=== PATIENT | female | born 1990 | race Caucasian/White ===

== ENCOUNTER 2017-11-18 12:35 | Emergency (ER) | END 2017-11-18 13:03 | disposition home or self-care (01) ==

== ENCOUNTER 2018-11-02 19:17 | Outpatient (CLI) | payer MEDICAID ==
[~2018-11-02] VITALS: Ht 157.5 cm; Wt 71.0 kg
[~2018-11-02 19:17] MED LIST: AZIT250T PO; BENZ-6 PO
[2018-11-02 20:31] VITALS: Ht 157.5 cm; Wt 71.0 kg
[2018-11-02 20:33] VITALS: BP 110/69; PULSE 62; RESP 18
--- NOTE | 2018-11-02 23:19 | TRIAGE ---
OB Triage Datetime Report Generated by CPN: 11/02/2018 23:19 Datetime: 11/02/2018 22:30 Stage of : OB Triage Labor Evaluation Frequency: 2-6 Monitor Mode: External Duration (sec)2399: 40-120 Quality: Mild Pattern: Normal: <= 5 Contractions in 10 Minutes Resting Tone [place]: Relaxed Heart Rate FHR Baseline Rate: 130 Monitor Mode: External US Variability: Moderate 6-25 bpm Accelerations: 15X15 Decelerations: None Category: Category I Datetime: 11/02/2018 21:32 Membrane Status: Intact Datetime: 11/02/2018 21:30 Stage of : OB Triage Labor Evaluation Frequency: 2-5 Monitor Mode: External Duration (sec)2399: 40-120 Quality: Mild Pattern: Normal: <= 5 Contractions in 10 Minutes Resting Tone [place]: Relaxed Heart Rate FHR Baseline Rate: 130 Monitor Mode: External US Variability: Moderate 6-25 bpm Accelerations: 15X15 Decelerations: None Category: Category I Datetime: 11/02/2018 20:30 Stage of : OB Triage Temperature Route: Oral Labor Evaluation Frequency: 2-5 Monitor Mode: External Duration (sec)2399: 40-120 Quality: Mild Pattern: Normal: <= 5 Contractions in 10 Minutes Resting Tone [place]: Relaxed Heart Rate FHR Baseline Rate: 130 Monitor Mode: External US Variability: Moderate 6-25 bpm Accelerations: 15X15 Decelerations: None Category: Category I Pain Assessment Pain Scale: 2 Pain Presence: Intermittent Pain Type: Dull Pain Location: Abdomen Pain Goal: 5 Pain Relief Measures: Comfort Measures Datetime: 11/02/2018 20:22 Vaginal Exam Dilatation (cms): 1.0 Effacement (%): 0 Station: -3 Exam By: TALYA Vaginal Bleeding: None Cervix, Consistency: Moderate Cervix, Position: Posterior Datetime: 11/02/2018 20:00 Assessment Type: Triage Maternal Assessment Level of Consciousness: Fully Conscious DTR's/Clonus: DTRs 2+; No Clonus Headache: Denies Blurred Vision: No Respiratory Effort: Unlabored; Regular Rhythm; Equal Expansion Breath Sounds, Left: Clear and Equal Breath Sounds, Right: Clear and Equal Nausea/Vomiting: Denies RUQ Epigastric Pain: Denies Lower Extremities Edema: None Upper Extremities Edema: None Facial Edema: None Fall Risk Assessment History of Falling: (0) No Secondary Diagnosis: (0) No Ambulatory Aid: (0) Bedrest/Nurse Assist IV Therapy: (0) No Gait: (0) Normal/Bedrest/Immobile Mental Status: (0) Oriented to Own Ability Fall Score: 0 Fall Risk Score Definition: No Risk: No action required Comment: TATOOS ON ABDOMEN Datetime: 11/02/2018 19:30 Time of Arrival: 11/02/2018 19:13 EGA: 38.0 Arrived By: Ambulatory Arrived From: Home Chief Complaint: CONTRACTIONS, VOMITX1 TODAY, 1 YESTERDAY Movement: Present Contractions: Irregular Rupture of Membranes: Denies Vaginal Bleeding: None Vaginal Discharge: Denies Patient Complaints: None Time Provider Notified: 11/02/2018 19:30 Provider Notified: EDWIN Initial Plan: EFM, VE, BPP, PO FLUIDS
--- NOTE | 2018-11-03 04:34 | PN ---
Triage Information Date/Time Reason for visit: Vaginal spotting after having vaginal exam in clinic, vomiting x1 today and yesterday Weeks of Gestation 38 weeks /Para Diabetes: none Hypertention: none Additional information 28-year-old at 38 weeks with a ERENDIRA of 118 2001-07-17 complaining of vaginal spotting after having vaginal exam in clinic and vomiting x1 today and yesterday. She states good movement. She denies shortness of breath, chest pain, headache, visual changes or LOF. Objective Vital Signs Date Temp Pulse Resp B/P (MAP) Pulse Ox O2 O2 Flow FiO2 Time Delivery Rate 11/02/18 98.3 62 18 110/69 Room Air 20:33 (83) Heart Rate: 140's Contractions: None Results/Medications Imaging Results FINDINGS: There is a single live intrauterine gestation. heart rate is 150 beats per minute. The position is cephalic. The placenta is anterior, grade II. The BRII is 10.9 cm. Breathing Movement: 2 Gross Body Movement: 2 Tone: 2 Qualitative Amniotic Fluid Volume: 2 TOTAL: 8 IMPRESSION: 1. Single viable intrauterine gestation. 2. Biophysical profile = 8/8. 3. BRII = 10.9 cm. Disposition: Discharge Assessment/Plan 28-year-old 010 at 38weeks with vaginal spotting after having a pelvic exam in clinic and 2 episodes of vomiting yesterday and today. heart rate is category 1. she has no uterine contractions. Speculum exam performed, there was no active bleeding. Patient reassured. Juice and crackers given, patient tolerated well. She has no vomiting. Sign and symptom of labor, preeclampsia, kick count discussed in detail with patient. She expressed understanding all of her questions answered. Ultrasound performed with biophysical profile of 8 out of 8 and normal BRII. She discharged home in stable condition with follow- up with. I strongly recommend come back to triage if she has any further concerns GINGER PINEDA Nov 03, 2018 04:34
== END 2018-11-02 22:35 | disposition home or self-care (01) ==
LOC: OBT 19:17 → L-D 19:19 → OBT 22:35
PROVIDERS: ATTEND Obstetrics & Gynecology
DX: O26.853 Spotting complicating pregnancy, third trimester (principal); Z3A.38 38 weeks gestation of pregnancy
CPT/HCPCS: 76818; Z7500; G0463

== ENCOUNTER 2018-11-06 17:35 | Inpatient (IN) | payer MEDICAID ==
[~2018-11-06] VITALS: Ht 157.5 cm; Wt 72.1 kg
[2018-11-06 17:47] VITALS: BP 118/81; PULSE 83; RESP 18; Ht 157.5 cm; Wt 72.1 kg
[2018-11-06] MEDS ORDERED: LACTATED RINGER'S 1,000 ML IV SCH (19:00)
[2018-11-06] MEDS ORDERED: ONDANSETRON 4 MG INJ IV PRN (19:00)
[2018-11-06] MEDS ORDERED: LACTATED RINGER'S 1,000 ML IV PRN (20:04)
[2018-11-06] MEDS ORDERED: BUTORPHANOL 2 MG INJ IV PRN (20:30)
[2018-11-06] MEDS ORDERED: METHYLERGONOVINE 0.2 MG INJ IM PRN (20:30)
[2018-11-06] MEDS ORDERED: CARBOPROST 250 MCG INJ IM PRN (20:30)
[2018-11-06] MEDS ORDERED: MINERAL OIL LIGHT 10 ML VIAL TOP PRN (20:30)
[2018-11-06] MEDS ORDERED: IBUPROFEN 600 MG TAB PO PRN (20:30)
[2018-11-06] MEDS ORDERED: LIDOCAINE 1% (MPF) 30 ML INJ INJ PRN (20:30)
[2018-11-06] MEDS ORDERED: MISOPROSTOL 200 MCG TAB PR PRN (20:30)
[2018-11-06] MEDS ORDERED: OXYTOCIN 30 UNITS/LR 500 ML IV SCH ×2 (20:30)
[2018-11-06] MEDS ORDERED: OXYTOCIN 30 UNITS/LR 500 ML IV PRN (20:30)
[2018-11-06] MEDS ORDERED: BUTORPHANOL 1 MG INJ IV PRN (20:30)
[2018-11-06] MEDS: LACTATED RINGER'S 1,000 ML IV SCH (20:50)
--- NOTE | 2018-11-06 21:26 | TRIAGE ---
OB Triage Datetime Report Generated by CPN: 11/06/2018 21:25 Datetime: 11/06/2018 21:03 Comments: Monitor off, pt transferred to L_D [facility] ambulatory, accompanied by María Fernandez RN. Datetime: 11/06/2018 21:00 Labor Evaluation Frequency: 1-4.5 Monitor Mode: External Duration (sec)2399: 40-100 Quality: Moderate Pattern: Normal: <= 5 Contractions in 10 Minutes Resting Tone [place]: Relaxed Heart Rate FHR Baseline Rate: 130 Monitor Mode: External US Variability: Moderate 6-25 bpm Accelerations: 15X15 Decelerations: None Category: Category I Comments: periods of baseline at 135bpm Pain Assessment Pain Scale: 9 Pain Presence: Intermittent Pain Type: Contraction; Pressure Pain Location: Abdomen; Back; Perineum Pain Relief Measures: Comfort Measures Datetime: 11/06/2018 20:00 Stage of : Labor Labor Evaluation Frequency: 1-4 Monitor Mode: External Duration (sec)2399: 40-90 Quality: Moderate Pattern: Normal: <= 5 Contractions in 10 Minutes Resting Tone [place]: Relaxed Heart Rate FHR Baseline Rate: 125 Monitor Mode: External US Variability: Moderate 6-25 bpm Accelerations: 15X15 Decelerations: None Category: Category I Pain Assessment Pain Scale: 8 Pain Presence: Intermittent Pain Type: Contraction; Pressure Pain Location: Abdomen; Back; Perineum Pain Relief Measures: Comfort Measures Pain Assessment Comments: Pt states pain is still 8/10 but contractions do feel more intense and cl oser to gether than before she arrived to hospital Datetime: 11/06/2018 19:59 Monitor Mode: External Monitor Mode: External US Datetime: 11/06/2018 19:47 Vaginal Exam Dilatation (cms): 2.0 Effacement (%): 40 Station: -2 Exam By: SAADIA RN Membrane Status: Intact Vaginal Bleeding: Normal Show Cervix, Consistency: Moderate Cervix, Position: Midposition Presentation 'A': Cephalic Datetime: 11/06/2018 19:00 Stage of : OB Triage Maternal Assessment Level of Consciousness: Fully Conscious Labor Evaluation Frequency: 1-7 Monitor Mode: External Duration (sec)2399: 50-100 Quality: Mild Resting Tone [place]: Relaxed Heart Rate FHR Baseline Rate: 135 Monitor Mode: External US Variability: Moderate 6-25 bpm Accelerations: 15X15 Decelerations: None Category: Category I Pain Assessment Pain Scale: 0 Pain Goal: 3 Membrane Status: Intact Vaginal Bleeding: None Datetime: 11/06/2018 17:50 Vaginal Exam Dilatation (cms): 1.5 Effacement (%): 50 Station: -2 Exam By: khemani Vaginal Bleeding: Scant Cervix, Consistency: Moderate Cervix, Position: Midposition Datetime: 11/06/2018 17:45 Assessment Type: Triage Maternal Assessment Level of Consciousness: Fully Conscious DTR's/Clonus: DTRs 2+; No Clonus Headache: Denies Blurred Vision: No Respiratory Effort: Unlabored; Regular Rhythm; Equal Expansion Breath Sounds, Left: Clear and Equal Breath Sounds, Right: Clear and Equal Nausea/Vomiting: Denies RUQ Epigastric Pain: Denies Lower Extremities Edema: None Degree: None Upper Extremities Edema: None Degree: None Facial Edema: None Fall Risk Assessment History of Falling: (0) No Secondary Diagnosis: (0) No Ambulatory Aid: (0) Bedrest/Nurse Assist IV Therapy: (0) No Gait: (0) Normal/Bedrest/Immobile Mental Status: (0) Oriented to Own Ability Fall Score: 0 Fall Risk Score Definition: No Risk: No action required Datetime: 11/06/2018 17:44 Time of Arrival: 11/06/2018 17:34 EGA: 38.4 Arrived By: Ambulatory Arrived From: Home Chief Complaint: PT. HERE C/O UC'S AND SPOTTING Movement: Present Contractions: Irregular Rupture of Membranes: Denies Vaginal Bleeding: None Vaginal Discharge: Denies Recent Sexual Intercouse: Denies Abdominal Trauma: Not Applicable Patient Complaints: Contractions; Cramping; Back Pain Time Provider Notified: 11/06/2018 18:30 Provider Notified: HADADIAN Initial Plan: EFM/SVE/BPP/IV HYDRATION/ZOFRAN Datetime: 11/06/2018 17:42 Monitor Mode: External Monitor Mode: External US Datetime: 11/02/2018 20:00 Fall Score: 0 Fall Risk Score Definition: No Risk: No action required Datetime: 11/02/2018 19:30 EGA: 38.0
[2018-11-06] MEDS: OXYTOCIN 30 UNITS/LR 500 ML IV SCH (22:44)
[2018-11-07] MEDS: LACTATED RINGER'S 1,000 ML IV SCH ×2 (04:26→19:02)
[2018-11-07] MEDS ORDERED: PNV11TAB PO (07:40)
[2018-11-07] MEDS: OXYTOCIN 30 UNITS/LR 500 ML IV SCH ×2 (08:49→23:04)
--- NOTE | 2018-11-08 00:51 | HP ---
Date/Time of Note Date/Time of Note DATE: 11/08/18 TIME: 00:46 OB - History Hx of Present Free Text/Dictation Late entry note. Patient seen at 07:30 on 11/07/2018 28-year-old 2 para 0010 with single intrauterine at 38 weeks and 5 days with a ERENDIRA of 11/16/2018 complaining of uterine contractions. She states good movement. She denies nausea, vomiting, shortness of breath, chest pain, headache, visual changes, vaginal bleeding or LOF. Initial cervical exam in triage was /high, repeat exam was . As there was cervical changes patient admitted in labor and delivery Chief Complaint: Uterine contractions Estimated Due Date: Nov 16, 2018 : 2 Para: 0 Spontaneous : 1 Therapeutic : 0 Care: Good Care Ultrasounds: Normal mid trimester US Obstetrical Complications: None Medical Complications: None Past Family/Social History * Past Medical, Surgical, Family and Obstetric Histories reviewed from chart. OB Admission Exam Vital Signs Vital Signs Vital Signs Date Temp Pulse Resp B/P (MAP) Pulse Ox O2 O2 Flow FiO2 Time Delivery Rate 11/06/18 98.7 83 18 118/81 Room Air 17:47 (93) Physical Exam HEENT: WNL Heart: Rhythm Normal Lungs: Clear Abdomen: WNL Extremities: Normal Cervical Dilatation: 2cm Effacement: 50% Station: -2 Membranes: Intact Heart Rate: 130's Accelerations: Accelerations Present Decelerations: No Decelerations Varibility: Moderate Contractions on Admission: < 5 Minutes Apart Intensity: Moderate Last 72 hours Lab Results CBC & BMP 11/06/18 23:25 OB Assessment/Plan Other plan: 28 years old at 38 weeks and 5 days seen in early labor - FHR: No sign of metabolic acidosis- Category I - Continuous EFM, toco - CBC, blood type and screen - Analgesia options with R/B/A discussed in detail with patient - Epidural per patient request - Please see the orders - Obtain record Admission, procedures, expectations, risks and possible complications have been discussed in detail with the patient. Risk of vaginal delivery including but not limited to bleeding, infection, cervical laceration, placental retention, injury to fetus, blood transfusion, blood transfusion related infection, risk of anesthesia, adhesion, cervical laceration, episiotomy/laceration, possible delivery with risk of bleeding, infection, injury to other organs (bowel, bladder, ureter, vessels, nerves), injury to fetus, blood transfusion, blood transfusion related infection, risk of anesthesia, scar and hernia formation, needs for future , removal of uterus or any other indicated surgery discussed with the patient. She expressed understanding and repeats the risks. All of her questions were answered. She signed the informed consent. PHYSICIAN'S VERIFICATION OF INFORMED CONSENT The patient was counseled regarding the procedure, its indications, risks, pote ntial complications and alternatives and any questions were answered. Consent was obtained. PLANNED PROCEDURE/TREATMENT: Vaginal delivery, episiotomy, repair of laceration possible delivery GINGER PINEDA Nov 08, 2018 00:51
[2018-11-08] MEDS: LACTATED RINGER'S 1,000 ML IV SCH ×3 (05:47→21:33)
[2018-11-09] MEDS: MISOPROSTOL 50 MCG CAPSULE PO SCH ×4 (01:16→13:00)
[2018-11-09] MEDS: LACTATED RINGER'S 1,000 ML IV SCH ×5 (02:52→21:49)
[2018-11-09] MEDS ORDERED: AMPICILLIN 2 GM/NS (PMX) 100 ML ONE (15:54)
[2018-11-09] MEDS ORDERED: AMPICILLIN 2 GM/NS (PMX) 100 ML IVPB ONE (16:00)
[2018-11-09] MEDS ORDERED: AMPICILLIN 1 GM/NS (PMX) 50 ML ONE (18:56)
[2018-11-09] MEDS: AMPICILLIN 1 GM/NS (PMX) 50 ML IVPB SCH (20:16)
[2018-11-09] MEDS: OXYTOCIN 30 UNITS/LR 500 ML IV SCH (21:37)
--- NOTE | 2018-11-09 21:56 | PREAC ---
Date/Time of Note Date/Time of Note DATE: 11/09/18 TIME: 21:56 Anesthesia Eval and Record Evaluation Time Pre-Procedure Interview DATE: 11/09/18 TIME: 21:56 Age 28 Sex female NPO: 8 hrs Preoperative diagnosis labor pain Planned procedure epidural Past Medical History Past Medical History: None Surgery & Anesthesia Issues No known issue Meds Anticoagulation: No Beta Williams within 24 hr: No Reason Beta Williams not given: Pt. not on B-Williams Reported Medications [id number] ( 19) 1 Each Tablet, 1 TAB PO DAILY, TAB 11/07/18 Discontinued Scripts Azithromycin* (Zithromax*) 250 Mg Tablet, 250 MG PO .ZPACK DIRECTED, #6 TAB TAKE 500 MG (2 TABS) THE FIRST DAY THEN 250 MG (1 TAB) DAYS 2-5 Prov:LARA DIOP PA-C 11/18/17 Benzonatate* (Tessalon Perle*) 100 Mg Capsule, 100 MG PO Q8H PRN for COUGH, #20 CAP Prov:LARA DIOP PA-C 11/18/17 Current Medications Ondansetron HCl (Zofran Inj) 4 mg Q6H PRN IV NAUSEA AND/OR VOMITING; Start 11/06/18 at 19:00 Lactated Ringer's 1,000 ml @ 125 mls/hr Q8H IV Last administered on 11/09/18at 21:49; Admin Dose 125 MLS/HR; Start 11/06/18 at 20:04 Butorphanol Tartrate (Stadol) 1 mg Q2H PRN IV PAIN; Start 11/06/18 at 20:30 Butorphanol Tartrate (Stadol) 2 mg Q2H PRN IV PAIN; Start 11/06/18 at 20:30 Lidocaine (Xylocaine 1% (Mpf)) 30 ml ONCE PRN INJ EPISIOTOMY; Start 11/06/18 at 20:30 Oxytocin/Lactated Ringer's 500 ml @ 500 mls/hr ONCE POST IV ; Start 11/06/18 at 20:30 Oxytocin/Lactated Ringer's 500 ml @ 125 mls/hr POST IV ; Start 11/06/18 at 20:30 Ibuprofen (Motrin) 600 mg ONCE PRN PO PAIN LEVEL 1-5; Start 11/06/18 at 20:30 Lactated Ringer's 1,000 ml @ 2,000 mls/hr Q30M PRN IV ANESTHESIA Last administered on 11/09/18at 20:17; Admin Dose 2,000 MLS/HR; Start 11/06/18 at 20:04 Oxytocin/Lactated Ringer's 500 ml @ 0 mls/hr ONCE PRN IV VAGINAL BLEEDING; Start 11/06/18 at 20:30 Methylergonovine Maleate (Methergine) 0.2 mg ONCE PRN IM VAGINAL BLEEDING; Start 11/06/18 at 20:30 Carboprost Tromethamine (Hemabate) 250 mcg ONCE PRN IM VAGINAL BLEEDING; Start 11/06/18 at 20:30 Misoprostol (Cytotec) 1,000 mcg ONCE PRN MT VAGINAL BLEEDING; Start 11/06/18 at 20:30 Oxytocin/Lactated Ringer's 500 ml @ 0 mls/hr FOR AUGMENTATION IV Last administered on 11/09/18at 21:37; Admin Dose 1 MLS/HR; Start 11/06/18 at 20:30 Mineral Oil (Muri-Lube) 10 ml PRN PRN TOP delivery lubrication; Start 11/06/18 at 20:30 Misoprostol (Cytotec 50 Mcg Capsule) 50 mcg Q4 PO Last administered on 11/09/18at 08:26; Admin Dose 50 MCG; Start 11/09/18 at 00:00 Ampicillin 50 ml @ 100 mls/hr Q4 IVPB Last administered on 11/09/18at 20:16; Admin Dose 100 MLS/HR; Start 11/09/18 at 20:00 Meds reviewed: Yes Allergies Coded Allergies: No Known Allergy (Unverified , 11/09/18) Allergies Reviewed: Yes Labs/Studies Labs Reviewed: Reviewed by anesthesiologist Result Diagram: 11/06/18 5974 test: N/A Pre-procedure Exam Last vitals Vital Signs Date Temp Pulse Resp B/P (MAP) Pulse Ox O2 O2 Flow FiO2 Time Delivery Rate 11/06/18 98.7 83 18 118/81 Room Air 17:47 (93) Airway: Adequate mouth opening, Adequate thyromental dist Mallampati: Mallampati II Teeth: Normal Lung: Normal Heart: Normal ASA Physical Status ASA physical status: 2 Emergency: None Pre-operative Attestations Prior to commencing anesthesia and surgery, the patient was re-evaluated, there was verification of: *The patient's identity *The results of appropriate recent lab work and preoperative vital signs *The above evaluation not changing prior to induction *Anesthetic plan, risk benefits, alternative and complications discussed with patient/family; questions answered; patient/family understands, accepts and wishes to proceed. NICKI CABRALES DO Nov 09, 2018 21:56
[2018-11-09] MEDS ORDERED: NALOXONE (0.4 MG/ML) INJ IV PRN (22:00)
--- NOTE | 2018-11-09 22:19 | PAC ---
Date/Time of Note Date/Time of Note DATE: 11/09/18 TIME: 22:18 Post-Anesthesia Notes Post-Anesthesia Note Last documented vital signs Vital Signs Date Temp Pulse Resp B/P (MAP) Pulse Ox O2 O2 Flow FiO2 Time Delivery Rate 11/06/18 98.7 63 18 118/60 97 Room Air 2218 Activity: WNL Respiratory function: WNL Cardiovascular function: WNL Mental status: Baseline Pain reasonably controlled: Yes Hydration appropriate: Yes Nausea/Vomiting absent: Yes NICKI CABRALES DO Nov 09, 2018 22:19
[2018-11-10] MEDS: AMPICILLIN 1 GM/NS (PMX) 50 ML IVPB SCH ×4 (00:04→11:53)
[2018-11-10] MEDS: FENTAnyl 2MCG/ML-ROPIV 0.2% 100 ML BAG EPI SCH ×2 (05:28→11:13)
[2018-11-10] MEDS: LACTATED RINGER'S 1,000 ML IV SCH ×2 (05:30→15:54)
[2018-11-10] MEDS ORDERED: GENTAMICIN 80 MG/NS (PMX) 50 ML IVPB SCH (08:12)
[2018-11-10] MEDS ORDERED: ACETAMINOPHEN 500 MG TAB PO PRN (08:12)
[2018-11-10] MEDS ORDERED: ACETAMINOPHEN 500 MG TAB ONE (08:15)
[2018-11-10] MEDS ORDERED: DEXTROSE 5%-LR 1,000 ML IV SCH (09:10)
[2018-11-10] MEDS ORDERED: CEFAZOLIN 2 GM/50 ML (PMX) 50 ML IVPB ONE (16:00)
--- NOTE | 2018-11-10 16:04 | PREAC ---
Date/Time of Note Date/Time of Note DATE: 11/10/18 TIME: 16:02 Anesthesia Eval and Record Evaluation Time Pre-Procedure Interview DATE: 11/10/18 TIME: 16:02 Age 28 Sex female NPO: 8 hrs Preoperative diagnosis iup at 38 weeks, failure to progress Planned procedure primary c section Past Medical History Past Medical History: Includes Heme: Anemia Surgery & Anesthesia Issues No known issue Meds Anticoagulation: No Beta Williams within 24 hr: No Reason Beta Williams not given: Pt. not on B-Williams Reported Medications [id number] ( 19) 1 Each Tablet, 1 TAB PO DAILY, TAB 11/07/18 Current Medications Ondansetron HCl (Zofran Inj) 4 mg Q6H PRN IV NAUSEA AND/OR VOMITING Last administered on 11/10/18at 03:14; Admin Dose 4 MG; Start 11/06/18 at 19:00 Lactated Ringer's 1,000 ml @ 125 mls/hr Q8H IV Last administered on 11/10/18at 15:54; Admin Dose 125 MLS/HR; Start 11/06/18 at 20:04 Butorphanol Tartrate (Stadol) 1 mg Q2H PRN IV PAIN; Start 11/06/18 at 20:30 Butorphanol Tartrate (Stadol) 2 mg Q2H PRN IV PAIN; Start 11/06/18 at 20:30 Lidocaine (Xylocaine 1% (Mpf)) 30 ml ONCE PRN INJ EPISIOTOMY; Start 11/06/18 at 20:30 Oxytocin/Lactated Ringer's 500 ml @ 500 mls/hr ONCE POST IV ; Start 11/06/18 at 20:30 Oxytocin/Lactated Ringer's 500 ml @ 125 mls/hr POST IV ; Start 11/06/18 at 20:30 Ibuprofen (Motrin) 600 mg ONCE PRN PO PAIN LEVEL 1-5; Start 11/06/18 at 20:30 Lactated Ringer's 1,000 ml @ 2,000 mls/hr Q30M PRN IV ANESTHESIA Last administered on 11/09/18at 20:17; Admin Dose 2,000 MLS/HR; Start 11/06/18 at 20:04 Oxytocin/Lactated Ringer's 500 ml @ 0 mls/hr ONCE PRN IV VAGINAL BLEEDING; Start 11/06/18 at 20:30 Methylergonovine Maleate (Methergine) 0.2 mg ONCE PRN IM VAGINAL BLEEDING; Start 11/06/18 at 20:30 Carboprost Tromethamine (Hemabate) 250 mcg ONCE PRN IM VAGINAL BLEEDING; Start 11/06/18 at 20:30 Misoprostol (Cytotec) 1,000 mcg ONCE PRN MD VAGINAL BLEEDING; Start 11/06/18 at 20:30 Oxytocin/Lactated Ringer's 500 ml @ 0 mls/hr FOR AUGMENTATION IV Last administered on 11/09/18at 21:37; Admin Dose 1 MLS/HR; Start 11/06/18 at 20:30 Mineral Oil (Muri-Lube) 10 ml PRN PRN TOP delivery lubrication; Start 11/06/18 at 20:30 Misoprostol (Cytotec 50 Mcg Capsule) 50 mcg Q4 PO Last administered on 11/09/18 08:26; Admin Dose 50 MCG; Start 11/09/18 at 00:00 Ampicillin 50 ml @ 100 mls/hr Q4 IVPB Last administered on 11/10/18 11:53; Admin Dose 100 MLS/HR; Start 11/09/18 at 20:00 Naloxone HCl (Narcan) 0.2 mg Q2M PRN IV DECREASED REPIRATORY RATE; Start 11/09/18 at 22:00 Fentanyl/ Ropivacaine 100 ml EPIDURAL (PCEA) EPI Last administered on 11/10/18 11:13; Admin Dose 100 ML; Start 11/09/18 at 22:00 Acetaminophen (Tylenol Tab) 1,000 mg Q6H PRN PO MILD PAIN(1-3)OR ELEVATED TEMP Last administered on 11/10/18 08:22; Admin Dose 1,000 MG; Start 11/10/18 at 08:12 Gentamicin Sulfate 50 ml @ 104 mls/hr Q8H IVPB Last administered on 11/10/18 08:28; Admin Dose 104 MLS/HR; Start 11/10/18 at 08:12 Dextrose/Lactated Ringer's 1,000 ml @ 125 mls/hr Q8H IV Last administered on 11/10/18 09:44; Admin Dose 125 MLS/HR; Start 11/10/18 at 09:10 Cefazolin Sodium/ Dextrose 50 ml @ 100 mls/hr ONCE ONCE IVPB ; Start 11/10/18 at 16:00; Stop 11/10/18 at 16:29 Meds reviewed: Yes Allergies Coded Allergies: No Known Allergy (Unverified , 11/09/18) Allergies Reviewed: Yes Labs/Studies Labs Reviewed: Reviewed by anesthesiologist Result Diagram: 11/06/18 5961 test: Positive Pre-procedure Exam Last vitals Vital Signs Date Temp Pulse Resp B/P (MAP) Pulse Ox O2 O2 Flow FiO2 Time Delivery Rate 11/10/18 99.2 09:26 11/06/18 83 18 118/81 Room Air 17:47 (93) Airway: Adequate mouth opening, Adequate thyromental dist Mallampati: Mallampati II Teeth: Normal Lung: Normal Heart: Normal ASA Physical Status ASA physical status: 2 Emergency: None Planned Anesthetic Neuraxial: Epidural Planned Pain Management Epidural, Parenteral pain med Pre-operative Attestations Prior to commencing anesthesia and surgery, the patient was re-evaluated, there was verification of: *The patient's identity *The results of appropriate recent lab work and preoperative vital signs *The above evaluation not changing prior to induction *Anesthetic plan, risk benefits, alternative and complications discussed with patient/family; questions answered; patient/family understands, accepts and wishes to proceed. KEVIN RAMIRES Nov 10, 2018 16:04
[2018-11-10] MEDS ORDERED: LIDOCAINE 1.5%/EPI MPF (SDV) 30 ML VIAL ONE (16:23)
[2018-11-10] MEDS ORDERED: FENTAnyl 50 MCG/ML VIAL ONE (16:24)
[2018-11-10] MEDS ORDERED: CLINDAMYCIN 900 MG/D5W (PMX) 50 ML IVPB SCH (16:30)
[2018-11-10] MEDS ORDERED: DEXAMETHASONE 4 MG/ML 1 ML INJ ONE (16:34)
[2018-11-10] MEDS ORDERED: CLINDAMYCIN 900 MG/D5W (PMX) 50 ML IVPB ONE (16:39)
[2018-11-10] MEDS ORDERED: morphine SULFATE/PF (10 MG/10 ML) INJ ONE (16:58)
[2018-11-10] MEDS ORDERED: ONDANSETRON 4 MG INJ IV PRN (17:30)
[2018-11-10] MEDS ORDERED: ZOLPIDEM 5 MG TAB PO PRN (17:30)
[2018-11-10] MEDS ORDERED: HYDROmorphONE 0.5 MG/0.5 ML SYG IV PRN ×2 (17:30)
[2018-11-10] MEDS ORDERED: DIPHENHYDRAMINE 50 MG INJ IV PRN (17:30)
[2018-11-10] MEDS ORDERED: NALOXONE (0.4 MG/ML) INJ IV PRN (17:30)
--- NOTE | 2018-11-10 17:45 | OPR ---
Operative Report Planned Procedure Procedure date Nov 10, 2018 Procedure(s) Primary low transverse delivery Performed by see signature line Dust Collector Operator: МАРИНА OCHOA MD Anesthesiologist: KEVIN RAMIRES Pre-procedure diagnosis 28-year-old 2 para 0010 with single intrauterine at 38 weeks and 5 days with arrest of dilation [id number] Anesthesia Type: [id number] spinal Post-Procedure Post-procedure diagnosis 28-year-old 2 para 0010 with single intrauterine at 38 weeks and 5 days with arrest of dilation Findings 1. Normal uterus, fallopian tubes and ovaries 2. Viable male in face presentation. 6 at one minute and 8 in 5 minutes. Weight: 8 pounds and 4 ounces - 3730 g. Time of delivery: 16:52 3. Placenta with three vessel cord 4. Amniotic fluid - Clear Estimated Blood Loss: 600 - 700 mls Specimen(s) Placenta Grafts/Implant(s) none Complication(s) none Pt Condition post procedure: stable Disposition: PACU Procedure Description INDICATION AND HISTORY: A 28-year-old 2 para 0010 with single intrauterine at 38 weeks and 5 days with arrest of dilation. The risk of delivery including but not limited to bleeding, infection, injury to other organs (bowel, bladder, ureter, vessels, nerves), injury to fetus, blood transfusion, blood transfusion related infection, risk of anesthesia, adhesion, needs for future , removal of uterus or any other indicated surgery was discussed with the patient and her family. She expressed understanding. All of her questions were answered. She signed the informed consent. DESCRIPTION OF OPERATION: The patient was taken to the operating room, where she was identified and the procedure was verified. The patient received two gram of Ancef 30 minutes prior to surgery. Spinal anesthesia was placed. The patient placed in the dorsal supine position with a left tilt. The heart rate was 130 bpm. The patient was then prepped and draped in the normal sterile fashion. A Pfannenstiel skin incision was made and carried down to the fascia with Bovie. The fascia was incised in the midline and the fascial incision was carried laterally with Caballero scissors. The superior portion of the fascial incision was then grasped with Hesham clamps and tented up and dissected off the underlying rectus muscle with sharp dissection. The lower portion of the fascial incision was then made in a similar fashion. The rectus muscle was and the peritoneum was entered. The peritoneal incision was then stretched and an Fredy retractor was inserted. Then, an incision was made in the lower uterine segment in a transverse fashion with a knife and extended bluntly. The was delivered atraumatically in cephalic presentation with the above findings. The umbilical cord was clamped and cut. The neonatology resuscitation team was present and the baby was handed to them. A cord blood sample was obtained for further evaluation. The placenta and membrane, which appeared normal were Removed. The uterus was exteriorized and cleared of all clot and debris. The uterus was then closed in a two layer fashion with 0-Monocryl. At the time of closure, hemostasis was noted. The gutters were irrigated. The peritoneum was reapproximated with 3-0 Vicryl. The muscle was reapproximated with 3-0 Vicryl. The fascia was approximated with 0-Vicryl in a running fashion. The skin was closed with 4-0 Monocryl. All instruments, sponges and needle counts were correct x3. The patient tolerated the procedure well. She transferred to the recovery room in stable condition. GINGER PINEDA Nov 10, 2018 17:45
[2018-11-10] MEDS ORDERED: MAGNESIUM HYDROXIDE 30ML CUP PO PRN (18:00)
[2018-11-10] MEDS ORDERED: METHYLERGONOVINE 0.2 MG TAB PO PRN (18:00)
[2018-11-10] MEDS ORDERED: CARBOPROST 250 MCG INJ IM PRN (18:00)
[2018-11-10] MEDS ORDERED: LANOLIN HPA 1 PKT TOP PRN (18:00)
[2018-11-10] MEDS ORDERED: OXYTOCIN 30 UNITS/LR 500 ML IV PRN (18:00)
[2018-11-10] MEDS ORDERED: METHYLERGONOVINE 0.2 MG INJ IM PRN (18:00)
[2018-11-10] MEDS ORDERED: MISOPROSTOL 200 MCG TAB PR PRN (18:00)
[2018-11-10] MEDS ORDERED: ACETAMINOPHEN 1000MG/100ML IV 100 ML IVPB ONE (19:00)
[2018-11-10] MEDS: OXYTOCIN 30 UNITS/LR 500 ML IV SCH ×3 (19:31→19:36)
[2018-11-10 20:40] VITALS: BP 128/58; PULSE 97; RESP 19
[2018-11-10] MEDS: SENNA/DOCUSATE NA (8.6MG/50MG) TAB PO SCH (21:00)
[2018-11-10] MEDS: PIPER-TAZO 3.375 GM IV (PMX) 100 ML IVPB SCH (22:31)
--- NOTE | 2018-11-10 22:53 | PAC ---
Date/Time of Note Date/Time of Note DATE: 11/10/18 TIME: 22:53 Post-Anesthesia Notes Post-Anesthesia Note Last documented vital signs Vital Signs Date Temp Pulse Resp B/P (MAP) Pulse Ox O2 O2 Flow FiO2 Time Delivery Rate 11/10/18 100.7 97 19 128/58 96 22:40 (81) 11/06/18 Room Air 17:47 Activity: WNL Respiratory function: WNL Cardiovascular function: WNL Mental status: Baseline Pain reasonably controlled: Yes Hydration appropriate: Yes Nausea/Vomiting absent: Yes KEVIN RAMIRES Nov 10, 2018 22:53
[2018-11-11] VITALS: BP 120/64; PULSE 76; RESP 18
[2018-11-11] MEDS: DEXTROSE 5%-LR 1,000 ML IV SCH ×4 (01:45→17:45)
[2018-11-11 04:00] VITALS: BP 117/73; PULSE 76; RESP 19
[2018-11-11] MEDS: KETOROLAC 30 MG INJ IV PRN ×2 (05:28→11:34)
[2018-11-11] MEDS: PIPER-TAZO 3.375 GM IV (PMX) 100 ML IVPB SCH ×3 (05:52→21:18)
[2018-11-11 07:30] VITALS: BP 117/70; PULSE 75; RESP 16
[2018-11-11] MEDS: SENNA/DOCUSATE NA (8.6MG/50MG) TAB PO SCH ×2 (08:53→21:17)
[2018-11-11] MEDS ORDERED: VITAMIN A & D 5 GM OINT PACKET TOP ONE (10:16)
[2018-11-11] MEDS ORDERED: DIPHTH/TET/ACEL PERTUSS (ADULT) 0.5 ML VIAL IM* ONE (11:00)
[2018-11-11 12:00] VITALS: BP 114/75; PULSE 69; RESP 20
[2018-11-11] MEDS: HYDROCODONE/APAP (5/325) TAB PO SCH ×2 (14:00→21:18)
[2018-11-11 15:55] VITALS: BP 108/60; PULSE 64; RESP 16
--- NOTE | 2018-11-11 17:33 | OPPN ---
Date/Time of Note Date/Time of Note DATE: 11/11/18 TIME: 17:32 Anesthesia Follow up Anesthesia Follow up Last documented vital signs Vital Signs Date Temp Pulse Resp B/P (MAP) Pulse Ox O2 O2 Flow FiO2 Time Delivery Rate 11/11/18 98.1 64 16 108/60 15:55 (76) 11/11/18 98 Room Air 12:00 Respiratory function: WNL Cardiovascular function: WNL Comments satisfactory pain management with intrathecal duramorph analgesai. no complications KEVIN RAMIRES Nov 11, 2018 17:33
[2018-11-11] MEDS: HYDROCODONE/APAP (5/325) TAB PO PRN (18:53)
[2018-11-11 19:45] VITALS: BP 116/61; PULSE 72; RESP 17
--- NOTE | 2018-11-11 21:05 | QN ---
Documentation Comment Postop day #1 status post Primary low transverse delivery Patient stable and afebrile VS - Last 72 Hours, by Label Date Temp Pulse Resp B/P (MAP) Pulse Ox O2 O2 Flow FiO2 Time Delivery Rate 11/11/18 98.0 72 17 116/61 Room Air 19:45 (79) 11/11/18 98.1 64 16 108/60 15:55 (76) 11/11/18 98.0 69 20 114/75 98 Room Air 12:00 (88) 11/11/18 98.2 75 16 117/70 99 Room Air 07:30 (86) 11/11/18 98.2 76 19 117/73 97 04:00 (88) 11/11/18 98.9 76 18 120/64 98 00:00 (82) 11/10/18 100.7 97 19 128/58 96 20:40 (81) 11/10/18 103.3 19:39 11/10/18 99.2 09:26 11/10/18 100.7 08:22 Hematology - 72 Hrs Test 11/11/18 06:54 Hematocrit 23.5 % (37.0-47.0) #L Hemoglobin 7.7 g/dl (12.0-16.0) #L Mean Corpuscular Hemoglobin 30.2 pg (29.0-33.0) Mean Corpuscular Hemoglobin Concent 32.8 g/dl (32.0-37.0) Mean Corpuscular Volume 92.2 fl (82.0-101.0) Mean Platelet Volume 12.5 fl (7.4-10.4) H Monocytes # (Manual) 1.3 10^3/ul (0.3-0.9) H Platelet Count 184 10^3/UL (140-415) Red Blood Count 2.55 10^6/ul (4.20-5.40) #L Red Cell Distribution Width 12.4 % (11.5-14.5) White Blood Count 19.9 10^3/ul (4.8-10.8) #H Abdomen fundus firm Incision clean dry and intact Extremities nontender Assessment and plan Encouraged to ambulate Continue with routine postop care JILLIAN EVANS MD Nov 11, 2018 21:05
[2018-11-11] MEDS: IBUPROFEN 800 MG TAB PO SCH (21:17)
[2018-11-12] MEDS: DEXTROSE 5%-LR 1,000 ML IV SCH ×3 (01:45→17:45)
[2018-11-12] MEDS: HYDROCODONE/APAP (5/325) TAB PO SCH ×3 (02:28→21:38)
[2018-11-12 03:55] VITALS: BP 105/59; PULSE 54; RESP 17
[2018-11-12] MEDS: PIPER-TAZO 3.375 GM IV (PMX) 100 ML IVPB SCH ×3 (06:11→22:51)
[2018-11-12] MEDS: IBUPROFEN 800 MG TAB PO SCH ×3 (06:12→21:39)
[2018-11-12] MEDS: HYDROCODONE/APAP (5/325) TAB PO PRN ×3 (06:13→18:17)
[2018-11-12 08:30] VITALS: BP 115/79; PULSE 64; RESP 17
[2018-11-12] MEDS: SENNA/DOCUSATE NA (8.6MG/50MG) TAB PO SCH ×2 (08:53→21:38)
--- NOTE | 2018-11-12 12:56 | QN ---
Documentation Comment PoD#2 is stable No VB +Flatus +voids VS stable Gen NAD Abd soft NT ND Incision is intact Genitalia No blood at perineum --->Ambulation EMMANUEL PINTO M.D. Nov 12, 2018 12:56
[2018-11-12 15:48] VITALS: BP 116/70; PULSE 79; RESP 17
[2018-11-12 19:40] VITALS: BP 101/62; PULSE 70; RESP 18
[2018-11-13] MEDS: DEXTROSE 5%-LR 1,000 ML IV SCH ×2 (01:45→09:45)
[2018-11-13] MEDS: HYDROCODONE/APAP (5/325) TAB PO PRN ×3 (02:32→17:44)
[2018-11-13 03:45] VITALS: BP 110/71; PULSE 64; RESP 17
[2018-11-13] MEDS: PIPER-TAZO 3.375 GM IV (PMX) 100 ML IVPB SCH (05:31)
[2018-11-13] MEDS: HYDROCODONE/APAP (5/325) TAB PO SCH ×2 (05:32→13:22)
[2018-11-13] MEDS: IBUPROFEN 800 MG TAB PO SCH ×2 (05:35→13:22)
[2018-11-13 08:45] VITALS: BP 136/85; PULSE 87; RESP 17
[2018-11-13] MEDS ORDERED: DIPHTH/TET/ACEL PERTUSS (ADULT) 0.5 ML VIAL IM* ONE (09:00)
[2018-11-13] MEDS ORDERED: MEASLES,MUMPS,RUBELLA VACCINE INJ SC* ONE (09:00)
[2018-11-13] MEDS: SENNA/DOCUSATE NA (8.6MG/50MG) TAB PO SCH (09:36)
--- NOTE | 2018-11-14 20:17 | PN ---
Date/Time of Note Date/Time of Note DATE: 11/14/18 TIME: 20:15 OB Subjective Subjective Subjective Entry note. Patient seen on 11/13/2018 POD#3 Patient is doing well. She denies nausea, vomiting, shortness of breath, chest pain, headache. She has been ambulating without difficulty, tolerating regular diet. Pain is well controlled on current medications OB Objective Objective Objective Vital Signs Date Temp Pulse Resp B/P (MAP) Pulse Ox O2 O2 Flow FiO2 Time Delivery Rate 11/13/18 98.6 87 17 136/85 Room Air 08:45 (102) 11/11/18 98 12:00 General: AAO X 3, comfortable, NAD, appropriate mood and affect. ABD: +BS. Soft, non-tender. Uterus 2 cm below umbilicus Incision: Clear, dry, intact. No erythema, drainage or induration. Flank: No CVA tenderness (B/L) LE: Mild edema. No clubbing, cyanosis, thigh or calf tenderness (B/L). Homans ' sign is negative OB Assessment/Plan Other plan: 28-year-old s/p primary delivery at 38 weeks and 5 days. POD#3 - AF, VSS - Baby is doing well, at bed side. She is bonding well - Contraception methods with R/B/A/FR discussed - Discharge home - Rx and instruction given - Follow up in one and 6 weeks GINGER PINEDA Nov 14, 2018 20:17
--- NOTE | 2018-11-14 20:18 | DS ---
Date/Time of Note Date/Time of Note DATE: 11/14/18 TIME: 20:17 Obstetrical Discharge Record Final Diagnosis Final Diagnosis: Term delivered Other Final Diagnosis Late entry note. Patient seen on 11/13/2018 28-year-old s/p primary delivery at 38 weeks and 5 days. POD#3. She is ambulating and tolerating regular diet. She is voiding without difficulty. Pain is controlled on current medication. - AF, VSS - Contraception methods with R/B/A/FR discussed - Discharge home - Rx and instruction given - Follow up in one and 6 weeks Section Section: Primary Primary Indication Arrest of dilation Condition on Discharge Physical Assessment Voiding: Yes Bowel Movement: Yes Breast: Soft, non-tender Fundus: Firm Calf Tenderness: No Patient Condition: Stable GINGER PINEDA Nov 14, 2018 20:18
== END 2018-11-13 18:25 | disposition home or self-care (01) | DRG 788 ==
LOC: OBT 17:35 → L-D 17:36 → OBT 20:01 → L-D 11-10 16:38 → PP1 11-10 20:50
PROVIDERS: ADMIT Obstetrics & Gynecology; ATTEND Obstetrics & Gynecology
PROC: 10D00Z1 Extraction of Products of Conception, Low, Open Approach (ICD-10-PCS; principal; 2018-11-10 16:45)
DX: O62.0 Primary inadequate contractions (principal); Z3A.38 38 weeks gestation of pregnancy; Z37.0 Single live birth
CPT/HCPCS: 36415; 62319; 76816; 76818; 80307; 82803; 85025; 85610; 85730; 86592; 86850; 86900; 86901; 87340; 88307; 90715; 96360; 96361; G0463; J0131; J0290; J0690; J1100; J1580; J1885; J2210; J2274; J2405; J2543; J2590; J3010; J7120; J7121